=== PATIENT | female | born 1960 | race Caucasian/White ===

== ENCOUNTER 2019-04-23 08:34 | Emergency (ER) | payer MEDICARE ==
[~2019-04-23] VITALS: Ht 175.3 cm; Wt 109.3 kg
--- OUTSIDE RECORDS SUMMARY | 2019-04-23 08:38 | XMS REPORT | Clinical Summary ---
Author Author [facility] Organization [facility] Address Unknown Phone Unavailable Care Team Providers Care Hairspring Adjuster Name Role Phone Brad Andrew MD PCP Allergies Comments Active Allergy Reactions Severity Noted Date Swelling, cough - ? Angioedema Metformin 02/12/2019 Phenazopyridine Palpitations 12/21/2018 Medications End Date Status Medication Sig Dispensed Refills Start Date Active atorvastatin (LIPITOR) 80 Take 1 tablet 90 tablet 1 mg tabletIndications: by mouth at 9 Diabetes mellitus type 2, bedtime uncontrolled, without nightly. complications, Familial hyperlipidemia Active lisinopril (ZESTRIL) 40 Take 1 tablet 90 tablet 1 mg tabletIndications: by mouth 9 HTN, goal below 140/90 daily. 05/05/2019 Active gabapentin (NEURONTIN) Take 2 540 tablet 1 600 mg tabletIndications: tablets by 9 Neuropathy mouth 3 times daily for 90 days. Active blood glucose meter Use as 1 Kit 0 (PRECISION XTRA directed.. 9 GLUCOMETER)Indications: Diabetes mellitus type 2, uncontrolled, without complications, Neuropathy Active blood glucose (PRECISION Use 2 times 50 Each 3 XTRA TEST STRIPS) test weekly (once 9 stripsIndications: per day on Diabetes mellitus type 2, Mon,Th) to uncontrolled, without test blood complications, Neuropathy sugar. Active lancets 28 Use 2 times 100 Each 1 gaugeIndications: weekly as 9 Diabetes mellitus type 2, directed. uncontrolled, without complications, Neuropathy 07/01/2019 Active tropicamide (MYDRIACYL) Instill 1 15 mL 0 0.5 % ophthalmic Drop in each 9 solutionIndications: eye once as Diabetes mellitus with needed for up hemoglobin A1c goal of to 1 dose 7.0%-8.0% (for poor retina scan image). Active pioglitazone (ACTOS) 15 Take 1 tablet 180 tablet 0 01/02/201 mg tabletIndications: by mouth 2 9 Diabetes mellitus type 2, times daily. uncontrolled, without complications Active naproxen (NAPROSYN) 500 Take 1 tablet 30 tablet 0 01/02/201 mg tabletIndications: by mouth 2 9 Neck swelling times daily (with meals). Active escitalopram (LEXAPRO) 10 Take half a 60 tablet 1 201 mg tabletIndications: tablet by 9 PTSD (post-traumatic mouth daily stress disorder) for 1 week and then 1 tablet daily. Active traZODone (DESYREL) 100 take one or 60 tablet 1 02/12/201 mg tabletIndications: two tablets 9 PTSD (post-traumatic qhs prn stress disorder) insomnia. 01/02/2019 Discontinued pioglitazone (ACTOS) 15 Take 1 tablet 180 tablet 0 12/21/201 mg tabletIndications: by mouth 2 9 Diabetes mellitus type 2, times daily. uncontrolled, without complications 01/02/2019 Discontinued metFORMIN (GLUCOPHAGE XR) Take 1 tablet 180 tablet 1 500 mg ER extended by mouth 2 9 release times daily. tabletIndications: Diabetes mellitus type 2, uncontrolled, without complications 01/02/2019 Discontinued mirtazapine (REMERON) 15 Take 1 tablet 30 tablet 3 201 mg tabletIndications: by mouth at 9 Insomnia, unspecified bedtime type, Depression with nightly. anxiety 02/12/2019 Discontinued metFORMIN (GLUCOPHAGE XR) Take 2 180 tablet 1 500 mg ER extended tablets by 9 release mouth 2 times tabletIndications: daily. Diabetes mellitus type 2, uncontrolled, without complications 02/12/2019 Discontinued traZODone (DESYREL) 50 mg Take 1 tablet 90 tablet 1 tabletIndications: by mouth at 9 Insomnia, unspecified bedtime type nightly. Active Problems Problem Noted Date Non-insulin dependent type 2 diabetes mellitus 02/12/2019 History of depressive symptoms 02/12/2019 Overview: DEPRESSION - flashbacks, ?ptsd, depression worse , fighting with sister, usually confides in sister - 1 year anniversay passing, about 5 close friends and relatives passing in past year - 2 friends, 2 sisters in law, Grief 02/12/2019 Diabetic polyneuropathy associated with type 2 diabetes mellitus 02/12/2019 Elevated blood pressure reading without diagnosis of hypertension 02/12/2019 Neck swelling 01/04/2019 Insomnia 12/21/2018 Glaucoma of both eyes 12/21/2018 History of hysterectomy 12/21/2018 Encounters Care Team Description Date Type Specialty Jerry Carney RN 04/10/2019 Nutrition Patient Education Jena Harley MDD (major depressive disorder), recurrent episode, moderate (Primary Dx); PTSD (post-traumatic stress disorder); Grief 04/06/2019 Office Visit Psychology Brad Andrew Jr., MD Qaadri, Zeba, RICHARD Diabetes mellitus type 2 with neurological manifestations (Primary Dx); Hyperkeratosis 04/06/2019 Office Visit Podiatry Isha Saenz RN 04/06/2019 Clinical Case Social Work Mgt 03/20/2019 Travel Brad Andrew Jr., MD Fall with injury, initial encounter 02/14/2019 Ancillary Radiology Procedure Brad Andrew Jr., MD Depression with anxiety; Grief; History of posttraumatic stress disorder (PTSD) 02/14/2019 Orders Only [facility] Tru Briggs MD PTSD (post-traumatic stress disorder) (Primary Dx) 02/12/2019 Office Visit Psychiatry Brad Andrew Jr., MD Fall with injury, initial encounter (Primary Dx); Diabetic polyneuropathy associated with type 2 diabetes mellitus; Depression with anxiety; Grief; History of posttraumatic stress disorder (PTSD) 02/12/2019 Office Visit [facility] Brad Andrew Jr., MD Fall with injury, initial encounter; Diabetic polyneuropathy associated with type 2 diabetes mellitus 02/12/2019 Orders Only Family Practice 02/12/2019 Travel 01/09/2019 Travel Brad Andrew Jr., MD Screen for colon cancer (Primary Dx); Diabetes mellitus with hemoglobin A1c goal of 7.0%-8.0%; Diabetes mellitus type 2, uncontrolled, without complications; Neck swelling; Insomnia, unspecified type 01/02/2019 Office Visit Family [facility] Vargas 01/02/2019 Clinical Case Social Work Mgt Brad Andrew Jr., MD Pain of both hip joints; Bilateral primary osteoarthritis of knee 12/21/2018 Ancillary Radiology Procedure Brad Andrew Jr., MD Breast cancer screening 12/21/2018 Ancillary Radiology Procedure Brad Andrew Jr., MD Need for vaccination (Primary Dx); Screen for colon cancer; Breast cancer screening; Preventative health care; Diabetes mellitus type 2, uncontrolled, without complications; Familial hyperlipidemia; Neuropathy; HTN, goal below 140/90; Pain of both hip joints; Insomnia, unspecified type; Depression with anxiety; History of hysterectomy; Glaucoma of both eyes, unspecified glaucoma type; Bilateral primary osteoarthritis of knee 12/21/2018 Office Visit Family Practice Brad Andrew Jr., MD Glaucoma of both eyes, unspecified glaucoma type 12/21/2018 Orders Only Family Practice 12/21/2018 Travel after 04/22/2018 Immunizations Name Administration Dates Next Due PPV 23 (Pneumococcal 12/21/2018 Polysaccharide 23 Valent) Tdap (Tetanus Toxoid, 12/21/2018 (Deferred: Patient already had this Reduced Diphtheria Toxoid immunization - per pt received already) And Acellular Pertussis, Absorbed) Family History Medical History Relation Name Comments Arthritis Mother Diabetes Mother Heart Mother Hypertension Mother Psychiatry Mother depression Pulmonary Mother copd Stroke Mother Cancer Sister breast cancer Hypothyroid Sister Relation Name Status Comments Mother Sister Social History Date Tobacco Use Types Packs/Day Years Used Never Smoker Smokeless Tobacco: Never Used Drinks/Week oz/Week Comments Alcohol Use social Yes Education Answer Date Recorded What is the highest level of school you have GED or equivalent 12/21/2018 completed or the highest degree you have received? Food Insecurity Answer Date Recorded Within the past 12 months, you worried that your Never true 12/21/2018 food would run out before you got money to buy more. Within the past 12 months, the food you bought Never true 12/21/2018 just didn't last and you didn't have money to get more. Sex Assigned at Date Recorded Not on file Industry Job Start Date Occupation Not on file Not on file Not on file Travel End Travel History Travel Start No recent travel history available. Last Filed Vital Signs Reading Time Taken Comments Vital Sign 132/58 04/06/2019 9:00 AM CDT Blood Pressure 78 04/06/2019 9:00 AM CDT Pulse 36.7 C (98 F) 04/06/2019 9:00 AM CDT Temperature 18 04/06/2019 9:00 AM CDT Respiratory Rate - - Oxygen Saturation - - Inhaled Oxygen Concentration 109.5 kg (241 lb 6.4 oz) 04/06/2019 9:00 AM CDT Weight 175.3 cm (5' 9") 04/06/2019 9:00 AM CDT Height 35.65 04/06/2019 9:00 AM CDT Body Mass Index Plan of Treatment Care Team Description Date Type Specialty Jena Harley [address] [place] [address] [id number] [place] [address] 05/03/2019 Office Visit Psychology Tru Briggs MD [address] [place] [address] 05/28/2019 Office Visit Psychiatry Health Maintenance Due Date Last Done Comments IMM Influenza Seasonal 07/10/2019 Oct to December (>/=19 yrs) Breast Cancer Scrn 12/22/2019 12/21/2018 (Yearly) Colorectal Cancer Scrn 01/03/2020 01/02/2019 Annual (FIT/FOBT) Age 50 to 75 DM Retinal Exam (Yearly) 01/10/2020 01/09/2019 DM HGBA1C (Yearly) 03/20/2020 03/20/2019, 02/14/2019, 12/21/2018 DM Foot Exam (Yearly) 04/06/2020 04/06/2019, 01/02/2019 Cervical Cancer Scrn (3 12/21/2021 12/21/2018, 12/21/2018 Yrs) Procedures Comments Procedure Name Priority Date/Time Associated Diagnosis DIABETIC FOOT EXAM Routine 04/06/2019 Diabetes mellitus type 2 10:38 AM CDT with neurological manifestations HEMOGLOBIN A1C Routine 03/20/2019 Diabetic polyneuropathy 7:46 AM CDT associated with type 2 diabetes mellitus LIPID PROFILE Routine 03/20/2019 Diabetes mellitus type 2, 7:46 AM CDT uncontrolled, without complications Familial hyperlipidemia XRAY KNEE 1 OR 2 VIEWS Routine 02/14/2019 Fall with injury, initial (LIMITED-AP/LAT) 8:33 AM CDT encounter HEMOGLOBIN A1C Routine 02/14/2019 Diabetes mellitus with 8:29 AM CDT hemoglobin A1c goal of 7.0%-8.0% Diabetes mellitus type 2, uncontrolled, without complications OPHTHALMOLOGY RETINAL Routine 01/09/2019 Diabetes mellitus with SCAN 10:10 AM CDT hemoglobin A1c goal of 7.0%-8.0% THYROID AB PANEL Routine 01/09/2019 Neck swelling 10:06 AM CDT LIPID PROFILE Routine 01/09/2019 Diabetes mellitus with 10:06 AM CDT hemoglobin A1c goal of 7.0%-8.0% Diabetes mellitus type 2, uncontrolled, without complications FECAL OCCULT BLOOD Routine 01/02/2019 Screen for colon cancer 3:46 PM CDT HEMOCCULT KIT FOR Routine 01/02/2019 Screen for colon cancer SPECIMEN COLLECTION AT 11:27 AM CDT HOME DIABETIC FOOT EXAM Routine 01/02/2019 Diabetes mellitus with 11:24 AM CDT hemoglobin A1c goal of 7.0%-8.0% Diabetes mellitus type 2, uncontrolled, without complications MAMMOGRAM BILAT SCREEN Routine 12/21/2018 Breast cancer screening DIGITAL 12:15 PM CDT XRAY KNEES-BILATERAL WT. Routine 12/21/2018 Bilateral primary BEARING (AP/LAT/SUN) 12:00 PM CDT osteoarthritis of knee XRAY HIP BILATERAL 2 Routine 12/21/2018 Pain of both hip joints VIEWS AND AP PELVIS 12:00 PM CDT FREE T4 Routine 12/21/2018 Preventative health care 11:14 AM CDT THYROID STIMULATING Routine 12/21/2018 Preventative health care HORMONE (TSH) 11:14 AM CDT CBC/DIFF Routine 12/21/2018 Preventative health care 11:14 AM CDT COMPREHENSIVE METABOLIC Routine 12/21/2018 Diabetes mellitus type 2, PANEL 11:14 AM CDT uncontrolled, without complications HEMOGLOBIN A1C Routine 12/21/2018 Diabetes mellitus type 2, 11:14 AM CDT uncontrolled, without complications HEMOCCULT KIT FOR Routine 12/21/2018 Screen for colon cancer SPECIMEN COLLECTION AT 11:03 AM CDT HOME after 04/22/2018 Results * DIABETIC FOOT EXAM (04/06/2019 10:38 AM CDT) Only the most recent of 2 results within the time period is included. Narrative Performed At Amina Foster DPM 04/06/2019 10:54 AM Diabetic Foot Exam was performed at 04/06/2019 10:51 AM.Right foot sensation is reduced, right foot pulses are normal, right foot appearance is normal.Left foot sensation is reduced,left foot pulses are normal, left foot appearance is normal. * HEMOGLOBIN A1C (03/20/2019 7:46 AM CDT) Only the most recent of 3 results within the time period is included. Hemoglobin A1c 8.2 (H) 4.3 - 6.1 % [facility] Estimated 189 (H) 70 - 110 mg/dL [facility] Average Glucose [facility] Specimen Blood Performing Organization Address City/State/[facility] [[email or web address]]code Phone Number [facility] [address] [place] [address] * LIPID PROFILE (03/20/2019 7:46 AM CDT) Only the most recent of 2 results within the time period is included. Triglyceride 95 <150 mg/dL [facility] Comment: [facility] Normal: < 150.0 mg/dL Borderline: 150-199 mg/dL High: 200-499 mg/dL Very High: >=500 mg/dL Cholesterol 123.0 <=200.0 mg/dL [facility] Comment: [facility] Desirable: < 200.0 mg/dL Borderline: 200 - 240 mg/dL High Risk: > 240 mg/dL HDL 53.0 See Reference Range [facility] Comment: Narrative. mg/dL LAB[facility] Increased CHD Risk: < 40.0 mg/dL Decreased CHD Risk: > 60 mg/dL LDL 51 <100 mg/dL [facility] Comment: [facility] Optimal: < 100.0 mg/dL Near Optimal: 120-129 mg/dL Borderline: 130-159 mg/dL High: 160-189 mg/dL Very High: >=190 mg/dL Specimen Blood Performing Organization Address City/State/Zipcode Phone Number [facility] [address] [place] [address] * XRAY KNEE 1 OR 2 VIEWS (LIMITED-AP/LAT) (02/14/2019 8:33 AM CDT) Specimen Impressions Performed At IMPRESSION: SMS 1. No acute radiographic abnormality. 2. Mild degenerative change as above. Dictated By: Iris Smith MD, 02/14/2019 8:46 AM I have reviewed the study and agree with the findings in this report. Signed By: Aaron Anderson MD, 02/14/2019 8:48 AM Narrative Performed At X-ray left knee - 2 views SMS HISTORY:L knee injury - fall 1 week ago COMPARISON: Bilateral knee radiographs 12/21/2018 FINDINGS: Bones: No acute displaced fracture. Osseous alignment is within normal limits. Joints: Mild joint space narrowing of the medial compartment and mild osteophyte formation in the lateral compartment. Soft tissues: The soft tissues appear unremarkable. Procedure Note Interface, Rad/Mammog In - 02/14/2019 8:53 AM CDT X-ray left knee - 2 views HISTORY: L knee injury - fall 1 week ago COMPARISON: Bilateral knee radiographs 12/21/2018 FINDINGS: Bones: No acute displaced fracture. Osseous alignment is within normal limits. Joints: Mild joint space narrowing of the medial compartment and mild osteophyte formation in the lateral compartment. Soft tissues: The soft tissues appear unremarkable. IMPRESSION IMPRESSION: 1. No acute radiographic abnormality. 2. Mild degenerative change as above. Dictated By: Iris Smith MD, 02/14/2019 8:46 AM I have reviewed the study and agree with the findings in this report. Signed By: Aaron Anderson MD, 02/14/2019 8:48 AM Performing Organization Address City/State/Zipcode Phone Number SMS * OPHTHALMOLOGY RETINAL SCAN (01/09/2019 10:10 AM CDT) RETINAL ALERT (A) [facility] SCAN-FINAL RESULT Right Diabetic Mild (A) [facility] Retinopathy Right Macular None IRIS Edema Right Other None [facility]IS Suspected Conditions Right Image Gradeable Image IRIS Quality Left Diabetic Mild (A) [facility]IS Retinopathy Left Macular None IRIS Edema Left Other None IRIS Suspected Conditions Left Image Gradeable Image IRIS Quality Specimen Narrative Performed At Retinal Study Result for MINGO GABRIEL ROBIN, a 58 y/o, F (: 1960, ) presented to [facility] on 01-09-2019 for a retinal imaging study of the left and right eyes. Based on the findings of the study, the following is recommended for MINGO GABRIEL Mild Pathology Found: Please advise the patient to return for another scan in 1 year. Interpreting Provider's Comments:No comments provided Right Eye Findings: Diabetic Retinopathy: Mild Left Eye Findings: Diabetic Retinopathy: Mild This result was electronically signed by Carlos Alan MD, , Taxonomy: [id number] on 01-09-2019 03:53:11 [facility] time. NOTE:Any pathology noted on this diabetic retinal evaluation should be confirmed by an appropriate ophthalmic examination. Performing Organization Address [facility] [[email or web address]]cooh Phone Number IRIS * THYROID AB PANEL (01/09/2019 10:06 AM CDT) Thy Perox (TPO) 18 LABORATORY Ab Reference range: 0 to 34 [employer] Unit: IU/mL LENI Thyroglobulin <1.0 LABORATORY Ab Reference range: 0.0 to 0.9 [employer] Unit: IU/mL LENI (note) Thyroglobulin Antibody measured by Luana Bernie Methodology Specimen Performing Organization Address [facility] Phone Number [employer] [facility] [place] [address] [facility] 145 * OCCULT BLOOD ICT (01/02/2019 3:46 PM CDT) Occult Blood Negative [facility] ICT Specimen Stool Performing Organization Address [facility] [place] Phone Number [facility] * MAMMOGRAM BILAT SCREEN DIGITAL (12/21/2018 12:15 PM CDT) Specimen Impressions Performed At IMPRESSION: BENIGN SMS There is no mammographic evidence of malignancy. A 1 year screening mammogram is recommended. This document has been electronically signed. Nimisha Busby M.D. to/penrad:12/21/2018 13:05:54 Sales Mgr: Tosin Kiran Sr. Final Assembly And Packing Supervisor, [facility] letter sent: Benign Exam Mammogram BI-RADS: 2 Benign G0202 Z85.3 Narrative Performed At #[id number] - MAMMOGRAM BILAT SCREEN DIGITAL SMS BILATERAL DIGITAL SCREENING MAMMOGRAM WITH CAD: 12/21/2018 CLINICAL: Screening for malignancy. No prior exams were available for comparison. The tissue of both breasts is heterogeneously dense. This may lower the sensitivity of mammography. Current study was also evaluated with a Computer Aided Detection (CAD) system. There are benign calcifications in both breasts. No significant masses, calcifications, or other findings are seen in either breast. Procedure Note Interface, Rad/Mammog In - 12/21/2018 3:02 PM CDT #[id number] - MAMMOGRAM BILAT SCREEN DIGITAL BILATERAL DIGITAL SCREENING MAMMOGRAM WITH CAD: 12/21/2018 CLINICAL: Screening for malignancy. No prior exams were available for comparison. The tissue of both breasts is heterogeneously dense. This may lower the sensitivity of mammography. Current study was also evaluated with a Computer Aided Detection (CAD) system. There are benign calcifications in both breasts. No significant masses, calcifications, or other findings are seen in either breast. IMPRESSION IMPRESSION: BENIGN There is no mammographic evidence of malignancy. A 1 year screening mammogram is recommended. This document has been electronically signed. Nimisha Busby M.D. to/penrad:12/21/2018 13:05:54 Sales Mgr: Tosin Kiran Sr. Final Assembly And Packing Supervisor, [facility] letter sent: Benign Exam Mammogram BI-RADS: 2 Benign G0202 Z85.3 Performing Organization Address City/State/Zipcode Phone Number SMS * XRAY HIP BILATERAL 2 VIEWS AND AP PELVIS (12/21/2018 12:00 PM CDT) Specimen Impressions Performed At IMPRESSION: SMS No acute osseous lesion. No significant degenerative changes. Dictated By: Kelton Bell MD, 12/21/2018 2:28 PM I have reviewed the study and agree with the findings in this report. Signed By: Aiden Taveras DO, 12/21/2018 3:55 PM Narrative Performed At Bilateral hips and pelvis - 2 views SMS HISTORY:uneven hip COMPARISON: None DISCUSSION: No displaced fracture or malalignment is identified. The joint spaces are well maintained and there is no definite osseous erosion. The sacrum is partially obscured by stool and overlying bowel gas. Procedure Note Interface, Rad/Mammog In - 12/21/2018 4:00 PM CDT Bilateral hips and pelvis - 2 views HISTORY: uneven hip COMPARISON: None DISCUSSION: No displaced fracture or malalignment is identified. The joint spaces are well maintained and there is no definite osseous erosion. The sacrum is partially obscured by stool and overlying bowel gas. IMPRESSION IMPRESSION: No acute osseous lesion. No significant degenerative changes. Dictated By: Kelton Bell MD, 12/21/2018 2:28 PM I have reviewed the study and agree with the findings in this report. Signed By: Aiden Taveras DO, 12/21/2018 3:55 PM Performing Organization Address City/State/Zipcode Phone Number SMS * XRAY KNEES-BILATERAL WT. BEARING (AP/LAT/SUN) (12/21/2018 12:00 PM CDT) Specimen Impressions Performed At IMPRESSION: SMS 1. Kellgren-Josue grade 2, mild osteoarthrosis of the right knee medial compartment. 2. Kellgren-Josue grade 2, mild osteoarthrosis of the left knee medial compartment. . Dictated By: Kelton Bell MD, 12/21/2018 2:27 PM I have reviewed the study and agree with the findings in this report. Signed By: Aiden Taveras DO, 12/21/2018 3:55 PM Narrative Performed At EXAM: Bilateral knee x-rays with weight bearing - 3 view(s). SMS HISTORY: BL knee pain COMPARISON: None. TECHNIQUE: Weight bearing AP and lateral views of the bilateral knees. DISCUSSION: No acute fracture or malalignment on this frontal view. Right: Moderate joint space narrowing of the medial compartment. Mild osteophytosis of the lateral and patellofemoral compartments.No soft tissue abnormality is identified. Left: Moderate joint is narrowing of the medial compartment. Mild osteophytosis of the lateral and patellofemoral compartments. No soft tissue abnormality is identified. Procedure Note Interface, Rad/Mammog In - 12/21/2018 4:00 PM CDT EXAM: Bilateral knee x-rays with weight bearing - 3 view(s). HISTORY: BL knee pain COMPARISON: None. TECHNIQUE: Weight bearing AP and lateral views of the bilateral knees. DISCUSSION: No acute fracture or malalignment on this frontal view. Right: Moderate joint space narrowing of the medial compartment. Mild osteophytosis of the lateral and patellofemoral compartments.No soft tissue abnormality is identified. Left: Moderate joint is narrowing of the medial compartment. Mild osteophytosis of the lateral and patellofemoral compartments. No soft tissue abnormality is identified. IMPRESSION IMPRESSION: 1. Kellgren-Josue grade 2, mild osteoarthrosis of the right knee medial compartment. 2. Kellgren-Josue grade 2, mild osteoarthrosis of the left knee medial compartment. . Dictated By: Kelton Bell MD, 12/21/2018 2:27 PM I have reviewed the study and agree with the findings in this report. Signed By: Aiden Taveras DO, 12/21/2018 3:55 PM Performing Organization Address City/State/Zipcode Phone Number SMS * COMPREHENSIVE METABOLIC PANEL(DBIL NOT INCLUDED) (12/21/2018 11:14 AM CDT) Albumin 4.3 3.7 - 5.3 g/dL [facility] Calcium 9.9 8.6 - 10.3 mg/dL [facility] CO2 25 21 - 31 mmol/L [facility] 1 Chloride 100 98 - 107 mmol/L [facility] 1 Creatinine 0.60 0.6 - 1.2 mg/dL [facility] 1 Glucose 318 (H) 70 - 110 mg/dL [facility] 1 Alkaline 94 34 - 104 U/L [facility] Phosphatase, S 1 Potassium 4.1 3.5 - 5.1 mmol/L [facility] 1 Sodium 137 136 - 145 mmol/L [facility] 1 ALT 13 7 - 52 U/L [facility] 1 AST (SGOT) 12 (L) 13 - 39 U/L [facility] 1 BUN 15 7 - 25 mg/dL [facility] 1 Bilirubin, 0.9 0.2 - 1.2 mg/dL [facility] Total 1 Protein, Total, 7.5 6.0 - 8.3 g/dL [facility] Serum 1 GFR, Estimated >60 mL/min/1.73 m2 [facility] 1 eGFR If Africn >60 mL/min/1.73 m2 [facility] Am 1 Anion Gap 12 [facility] 1 Specimen Blood Performing Organization Address [facility] [[email or web address]]code Phone Number MISYS [facility] 1 * TSH (12/21/2018 11:14 AM CDT) TSH 3.89 (H) 0.57 - 3.74 uIU/mL [facility] 1 Specimen Blood Performing Organization Address [facility] [[email or web address]]cooh Phone Number MISYS [facility] * FREE T4 (12/21/2018 11:14 AM CDT) Free T4 0.71 0.61 - 1.18 ng/dl [facility] Comment: 1 females: 1st Trimester-0.52-1.10 ng/dL 2nd Trimester=0.45-0.99 ng/dL 3rd Trimester=0.48-0.95 ng/dL Specimen Blood Performing Organization Address City/State/Zipcode Phone Number [facility] * CBC/DIFF (12/21/2018 11:14 AM CDT) WBC 8.2 4.5 - 11.0 K/uL [facility] RBC 5.37 4.20 - 5.40 M/uL [facility] Hemoglobin 15.5 12.0 - 16.0 g/dL [facility] Hematocrit 47.0 37.0 - 47.0 % [facility] MCV 88 82 - 92 fL [facility] MCH 28.9 27.0 - 32.0 pg [facility] MCHC 33.0 32.0 - 36.0 g/dL [facility] RDW 43.6 36.4 - 46.3 fL [facility] Platelets 346 150 - 400 K/uL [facility] Mean Platelet 9.4 9.4 - 12.4 fL [facility] Volume 2 Percent NRBC 0.0 [facility] Absolute NRBC 0.00 [facility] Neutrophils 72.2 (H) 34.0 - 70.0 % [facility] Lymphs 18.8 (L) 20.0 - 50.0 % [facility] Monocytes 6.3 5.0 - 12.0 % [facility] Eos 1.5 0.7 - 5.0 % [facility] Basos 0.7 0.1 - 1.2 % [facility] 2 Immature 0.5 0.0 - 0.5 [facility] Granulocytes 2 Neutrophils 5.89 1.56 - 6.13 K/uL [facility] (Absolute) 2 Lymphs 1.53 1.18 - 3.74 K/uL [facility] (Absolute) 2 Monocytes(Absol 0.51 (H) 0.24 - 0.36 K/uL [facility] robin) 2 Eos (Absolute) 0.12 0.04 - 0.36 K/uL [facility] 2 Baso (Absolute) 0.06 0.01 - 0.08 K/uL [facility] 2 Immature Grans 0.04 (H) 0.00 - 0.03 K/uL [facility] (Abs) 2 Specimen Blood Performing Organization Address City/State/Zipcode Phone Number [facility] after 04/22/2018 Insurance Type Payer Benefit Subscriber ID Effective Phone Address Plan / Dates Group [place] [employer] [place] 2018-8 [address] [employer] /[id number] [place], [place] [id number] [employer] xxxxxxx 2018-7 [address] [place] [address]
--- OUTSIDE RECORDS SUMMARY | 2019-04-23 08:41 | XMS REPORT ---
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 Allergies, Adverse Reactions, Alerts This patient has no known allergies or adverse reactions. Medications This patient has no known medications. Encounters Start Date/Time End Date/Time Encounter Type Admission Type Attending [facility] Facility Care Department Encounter ID 2019-05-28 00:00:00 2019-05-28 00:00:00 Outpatient [facility] [id number] 2019-05-03 00:00:00 2019-05-03 00:00:00 Outpatient [facility] [id number] 2019-04-16 00:00:00 2019-04-16 00:00:00 Outpatient [facility] [id number] 2019-04-06 09:59:57 2019-04-06 09:59:57 Outpatient [facility] [id number] 2019-04-06 08:56:48 2019-04-06 08:56:48 Outpatient [facility] [id number] 2019-03-21 00:00:00 2019-03-21 00:00:00 Outpatient [facility] [id number] 2019-03-20 07:45:17 2019-03-20 07:45:17 Outpatient [facility] [id number] 2019-03-20 00:00:00 2019-03-20 00:00:00 Outpatient [facility] [id number] 2019-02-14 08:39:02 2019-02-14 08:39:02 Outpatient [facility] [id number] 2019-02-14 08:22:22 2019-02-14 08:22:22 Outpatient [facility] [id number] 2019-02-13 00:00:00 2019-02-13 00:00:00 Outpatient [facility] [id number] 2019-02-12 07:54:31 2019-02-12 07:54:31 Outpatient [facility] [id number] 2019-02-12 07:41:46 2019-02-12 07:41:46 Outpatient [facility] [id number] 2019-02-12 00:00:00 2019-02-12 00:00:00 Outpatient [facility] [id number] 2019-01-26 00:00:00 2019-01-26 00:00:00 Outpatient [facility] [id number] 2019-01-09 10:10:49 2019-01-09 10:10:49 Outpatient [facility] [id number] 2019-01-09 09:43:06 2019-01-09 09:43:06 Outpatient [facility] [id number] 2019-01-03 00:00:00 2019-01-03 00:00:00 Outpatient [facility] [id number] 2019-01-02 15:51:15 2019-01-02 15:51:15 Outpatient [facility] [id number] 2019-01-02 10:36:45 2019-01-02 10:36:45 Outpatient [facility] [id number] 2018-12-21 12:17:58 2018-12-21 12:17:58 Outpatient [facility] [id number] 2018-12-21 11:32:47 2018-12-21 11:32:47 Outpatient [facility] [id number] 2018-12-21 11:32:20 2018-12-21 11:32:20 Outpatient [facility] [id number] 2018-12-21 09:40:08 2018-12-21 09:40:08 Outpatient [facility] [id number]
[2019-04-23 09:06] LABS: BILIRUBIN,URINE NEGATIVE (NEGATIVE); CLARITY,URINE CLEAR (CLEAR); COLOR,URINE YELLOW (YELLOW); KETONES,URINE NEGATIVE (NEGATIVE); LEUKOCYTE ESTERASE ,URINE NEGATIVE (NEGATIVE); NITRITE,URINE NEGATIVE (NEGATIVE); PROTEIN,URINE DIPSTICK NEGATIVE (NEGATIVE); URINE UROBILINOGEN 0.2 mg/dL (0.2 - 1)
[2019-04-23 09:42] LABS: BACTERIA,URINE FEW /HPF; EPITHELIAL CELLS,URINE FEW /LPF; RBC,URINE 0-5 /HPF (0-5); WBC,URINE (MAN) 0-5 /HPF (0-5)
[2019-04-23 10:13] LABS: BASOPHILS # (AUTO) 0.1 (0.0-0.1); BASOPHILS % 0.7 % (0.0-1.0); EOSINOPHILS # (AUTO) 0.1 (0.0-0.4); EOSINOPHILS % 1.7 % (0.0-6.0); HEMATOCRIT 45.2 % (34.2-44.1); HEMOGLOBIN 15.9 g/dL (12.0-16.0); LYMPHOCYTES # (AUTO) 1.2 (1.0-3.2); LYMPHOCYTES % 17.2 % (18.0-39.1); MEAN CORPUSCULAR HEMOGLOBIN 28.8 pg (28-32); MEAN CORPUSCULAR HGB CONC 35.2 g/dL (31-35); MEAN CORPUSCULAR VOLUME 81.9 fL (81-99); MONOCYTES # (AUTO) 0.5 (0.2-0.8); MONOCYTES % 7.3 % (4.4-11.3); NEUTROPHILS % 72.8 % (38.7-80.0); PLATELET COUNT 257 x10e3/uL (140-360); RED BLOOD COUNT 5.52 x10e6/uL (3.6-5.1); RED CELL DISTRIBUTION WIDTH 13.3 % (11.7-14.4)
[2019-04-23 10:42] LABS: ALANINE AMINOTRANSFERASE 10 IU/L (0-55); ALBUMIN/GLOBULIN RATIO 1.1 (0.8-2.0); ALKALINE PHOSPHATASE 78 IU/L (40-150); ANION GAP 14.2 mmol/L (8-16); BLOOD UREA NITROGEN 12 mg/dL (7-26); BUN/CREATININE RATIO 14 (6-25); CALCIUM 9.8 mg/dL (8.4-10.2); CARBON DIOXIDE 28 mmol/L (22-29); CHLORIDE 100 mmol/L (98-107); CREATININE, SERUM 0.85 mg/dL (0.57-1.11); EST GLOMERULAR FILTRATION RATE > 60 ML/MIN (60-); GLUCOSE 287 mg/dL (74-118); POTASSIUM 4.2 mmol/L (3.5-5.1); SODIUM 138 mmol/L (136-145)
[2019-04-23 11:36] VITALS: BP 160/92
== END 2019-04-23 12:00 | disposition home or self-care (01) ==
LOC: ER 08:34
DX: R10.9 Unspecified abdominal pain (principal); M54.5 Low back pain; I10 Essential (primary) hypertension; E11.40 Type 2 diabetes mellitus with diabetic neuropathy, unspecified; E78.5 Hyperlipidemia, unspecified; F32.9 Major depressive disorder, single episode, unspecified
CPT/HCPCS: 36415; 80053; 81001; 85025; 99284

== ENCOUNTER → 2021-05-12 | Day surgery (SDC) | payer MEDICARE ==
[~2021-05-12] MED LIST: ACTOS30 MG PO; ATORVASTATIN CA20 MG PO; ETODOLAC300 MG PO; GLUCAGON FOR INJ 1 MG VIAL ONE; HYOSCYAMINE SULFATE 0.5 MG/ML INJ ONE; LEXAPRO20 MG PO; LISINOPRIL10 MG PO; NEURONTIN400 MG PO; PANTOPRAZOLE SO40 MG PO; PROPOFOL IV EMULSION 10 MG/ML 20 ML VIAL ONE; TRAZODONE HCL100 MG PO; [UNRECOGNIZED DRUG - OTHER]
[2021-05-12 14:45] VITALS: BP 159/78
== END | disposition home or self-care (01) ==
LOC: OR 11:28
PROVIDERS: ATTEND Internal Medicine Gastroenterology
DX: K20.90 Esophagitis, unspecified without bleeding (principal); K29.70 Gastritis, unspecified, without bleeding; K44.9 Diaphragmatic hernia without obstruction or gangrene; K31.7 Polyp of stomach and duodenum; K64.8 Other hemorrhoids; K29.80 Duodenitis without bleeding; K29.50 Unspecified chronic gastritis without bleeding; D12.0 Benign neoplasm of cecum; D12.5 Benign neoplasm of sigmoid colon; Z68.36 Body mass index [BMI] 36.0-36.9, adult; I10 Essential (primary) hypertension; Z01.810 Encounter for preprocedural cardiovascular examination; Z01.812 Encounter for preprocedural laboratory examination; Z20.822 Contact with and (suspected) exposure to COVID-19
CPT/HCPCS: 36415; 43239; 45380; 45385; 82948; 93005; J1610; J1980; J2704; U0002; 45378

== ENCOUNTER 2021-11-26 06:17 | Observation (INO) | payer MEDICARE ==
[2021-11-24 13:18] LABS: BASOPHILS # (AUTO) 0.1 (0.0-0.1); BASOPHILS % 1.1 % (0.0-1.0); EOSINOPHILS # (AUTO) 0.3 (0.0-0.4); EOSINOPHILS % 3.9 % (0.0-6.0); HEMOGLOBIN 15.2 g/dL (12.0-16.0); LYMPHOCYTES # (AUTO) 1.5 (1.0-3.2); LYMPHOCYTES % 20.9 % (18.0-39.1); MEAN CORPUSCULAR HEMOGLOBIN 28.9 pg (28-32); MEAN CORPUSCULAR HGB CONC 33.8 g/dL (31-35); MEAN CORPUSCULAR VOLUME 85.6 fL (81-99); MONOCYTES # (AUTO) 0.5 (0.2-0.8); NEUTROPHILS # (AUTO) 4.9 (2.1-6.9); NEUTROPHILS % 66.7 % (38.7-80.0); PLATELET COUNT 301 x10e3/uL (140-360); RED BLOOD COUNT 5.26 x10e6/uL (3.6-5.1); RED CELL DISTRIBUTION WIDTH 13.2 % (11.7-14.4)
[2021-11-24 13:39] LABS: ALBUMIN/GLOBULIN RATIO 1.1 (0.8-2.0); ANION GAP 15.1 mmol/L (8-16); CALCIUM 9.7 mg/dL (8.4-10.2); CREATININE, SERUM 0.9 mg/dL (0.57-1.11); POTASSIUM 4.1 mmol/L (3.5-5.1)
[~2021-11-26] VITALS: Ht 175.3 cm; Wt 112.5 kg
[~2021-11-26 06:17] MED LIST changes: +BUSPIRONE HCL10 MG PO; -GLUCAGON FOR INJ 1 MG VIAL ONE; +HYDROXYZINE PAM25 MG PO; -HYOSCYAMINE SULFATE 0.5 MG/ML INJ ONE; +JANUVIA100 MG PO; +LEVEMIR FL100 UNIT/1 SC; -PROPOFOL IV EMULSION 10 MG/ML 20 ML VIAL ONE; +SEROQUEL100 MG PO; +[UNRECOGNIZED DRUG - OTHER] SQ
[2021-11-26] MEDS ORDERED: INSULIN REGULAR, HUMAN 100 UNIT/1 ML ONE (07:06)
[2021-11-26] MEDS ORDERED: BUPIVACAINE 0.25% 30ML SDV ONE (08:53)
[2021-11-26] MEDS ORDERED: ONDANSETRON HCL INJ 2MG/ML 2ML 2 MG/ML VIAL IV PRN (11:30)
[2021-11-26] MEDS ORDERED: HYDROCODONE/APAP 7.5MG-325MG 1 EA TAB PO PRN (11:30)
[2021-11-26] MEDS ORDERED: SUCCINYLCHOLINE CHLORIDE 20 MG/ML 10ML VIAL ONE (11:59)
[2021-11-26] MEDS ORDERED: POVIDONE IODINE 0.05% 0.05 % ML PO ONE (11:59)
[2021-11-26] MEDS ORDERED: LIDOCAINE HCL 2% LOCAL INJ 5 ML SDV VIAL INJ ONE (11:59)
[2021-11-26] MEDS ORDERED: SEVOFLURANE INHAL SOLN 250 ML PEN BTL ONE (11:59)
[2021-11-26] MEDS ORDERED: ONDANSETRON HCL INJ 2MG/ML 2ML 2 MG/ML VIAL ONE (11:59)
[2021-11-26] MEDS ORDERED: PROPOFOL IV EMULSION 10 MG/ML 20 ML VIAL ONE (11:59)
[2021-11-26] MEDS ORDERED: KETAMINE HCL INJ 50 MG/ML 10 ML VIAL ONE (12:46)
[2021-11-26] MEDS ORDERED: MIDAZOLAM HCL 2 MG/2 ML VIAL ONE (12:46)
[2021-11-26] MEDS ORDERED: FENTANYL CITRATE/PF 100MCG/2 ML INJ ONE (12:46)
[2021-11-26] MEDS ORDERED: HYDROCODONE/APAP 7.5MG-325MG 1 EA TAB ONE (14:09)
[2021-11-26] MEDS: HYDROMORPHONE 1MG/1ML INJ IV PRN ×2 (14:43→18:30)
[2021-11-26] MEDS: SODIUM CHLORIDE 0.9% 1000ML 1,000 ML IV SCH ×2 (14:59→21:14)
[2021-11-26 15:00] VITALS: BP 154/72
[2021-11-26 15:20] VITALS: BP 154/72
[2021-11-26] MEDS: BUSPIRONE HCL 10 MG TABLET PO SCH ×2 (17:10→20:30)
[2021-11-26] MEDS: PIOGLITAZONE HCL 15 MG TAB PO SCH (17:10)
[2021-11-26] MEDS: GABAPENTIN 300 MG CAP PO SCH ×2 (17:10→20:30)
[2021-11-26 20:00] VITALS: BP 139/65
[2021-11-26] MEDS ORDERED: QUETIAPINE FUMARATE 100 MG TAB PO SCH (21:00)
[2021-11-27] VITALS: BP 143/60
[2021-11-27 04:00] VITALS: BP 136/71
[2021-11-27] MEDS: SODIUM CHLORIDE 0.9% 1000ML 1,000 ML IV SCH ×3 (07:30→17:30)
[2021-11-27 07:44] VITALS: BP 161/73
[2021-11-27 07:49] VITALS: BP 161/73
[2021-11-27] MEDS: GABAPENTIN 300 MG CAP PO SCH ×2 (08:50→15:39)
[2021-11-27] MEDS: PIOGLITAZONE HCL 15 MG TAB PO SCH ×2 (08:51→15:39)
[2021-11-27] MEDS: BUSPIRONE HCL 10 MG TABLET PO SCH ×2 (08:52→15:39)
[2021-11-27] MEDS ORDERED: ESCITALOPRAM OXALATE 10 MG TAB PO SCH (09:00)
[2021-11-27] MEDS ORDERED: SITAGLIPTIN 100 MG TAB PO SCH (09:00)
[2021-11-27] MEDS ORDERED: LISINOPRIL 20 MG TAB PO SCH (09:00)
[2021-11-27 11:03] VITALS: BP 159/73
[2021-11-27 15:09] VITALS: BP 137/84
== END 2021-11-27 18:33 | disposition home or self-care (01) ==
LOC: OR 06:17 → PACU V 11:26 → MED/SURG 14:21
PROVIDERS: ADMIT Surgery; ATTEND Surgery
DX: C50.911 Malignant neoplasm of unspecified site of right female breast (principal); Z20.822 Contact with and (suspected) exposure to COVID-19; Z01.818 Encounter for other preprocedural examination; I10 Essential (primary) hypertension; E78.5 Hyperlipidemia, unspecified; K21.9 Gastro-esophageal reflux disease without esophagitis; K44.9 Diaphragmatic hernia without obstruction or gangrene; E11.9 Type 2 diabetes mellitus without complications
CPT/HCPCS: 19305; 36415 ×3; 71046; 78195; 80053; 82948 ×2; 85025; 88304; 93005; A9541; G0378 ×2; J0330; J1170; J2001; J2250; J2405; J2704; J3010; J7030 ×2; U0002; J1817

== ENCOUNTER → 2022-07-07 | Outpatient (CLI) | payer MEDICARE | LOC: DX 12:27 | PROVIDERS: ATTEND Internal Medicine Hematology & Oncology | DX: Z13.820 Encounter for screening for osteoporosis (principal); C50.411 Malignant neoplasm of upper-outer quadrant of right female breast; E55.9 Vitamin D deficiency, unspecified; Z17.0 Estrogen receptor positive status [ER+] | CPT/HCPCS: 77080 ==